=== PATIENT | male | born 1980 | race Caucasian/White ===

== ENCOUNTER 2021-02-03 10:14 | Emergency (ER) | payer SELFPAY ==
--- NOTE | ~2021-02-03 | XR_ITS ---
XR lumbar spine 2-3V 02/03/2021 10:53 Indication: Low back pain Procedure: 3 views lumbar spine Comparison: No prior studies for comparison. Findings: There are changes of posterior lumbar fusion and discectomy at L5-S1. There are laminectomy changes at L5. There is mild wedge-shaped appearance to L1 and L2, likely chronic or developmental. No acute fracture or traumatic malalignment. No spondylolisthesis. Sacral foramen are symmetric. Impression: 1: No acute abnormality of the lumbar spine. Reviewed, dictated and finalized at location [facility]. Impression: 1: No acute abnormality of the lumbar spine.
[2021-02-03 10:15] VITALS: BP 138/87; PULSE 87; RESP 16; TEMP 36.5; O2SAT 100
--- NOTE | 2021-02-03 10:19 | ED.BACK ---
HPI - Back Pain/Injury General Chief Complaint: Back Pain/Injury Stated Complaint: ambulance Time Seen by Provider: 02/03/21 10:19 Source: patient Mode of arrival: EMS Limitations: no limitations History of Present Illness HPI Narrative: 40-year-old man with a history of multiple back surgeries brought to the ER by EMS today complaining of sudden onset low back pain while walking out doors to walk his dog. It started as he was walking down some steps. he states the pain is on his left, worse with movement, and with taking a deep breath. He states the pain shot down his left leg and he has some decreased sensation in his left toes. He denies incontinence or weakness. He states he was up multiple times last night to urinate, but denies dysuria and hematuria. He denies falls or injury and has had no recent cough or cold symptoms, fever, chills, abdominal pain, chest pain, nausea, or vomiting. MD elicited complaint: back pain Pertinent past history: prior back pain, back surgery and neurological deficit ( He states his left leg used to give out on him.) Onset (ago): hour(s) (1) Timing: constant Severity: severe Similar Symptoms Previously: Yes Quality: sharp Location: lumbar spine Radiation: left leg below the knee Exacerbating factors: movement and deep breaths Relieving factors: other ( Position) Associated symptoms: numbness ( left toes) Treatments prior to arrival: acetaminophen Work related injury: No Related Data Allergies Allergy/AdvReac Type Severity Reaction Status Date / Time Penicillins Allergy Itching Verified 02/03/21 10:16 Review of Systems Review of Systems: All systems reviewed & are unremarkable except as noted in HPI and below Constitutional: Constitutional: Denies chills and Denies fever(s) Eyes: Eyes: Denies change in vision and Denies photophobia ENT: Denies dysphagia, Denies nasal congestion and Denies sore throat Cardiovascular: Cardiovascular: Denies chest pain and Denies radiating jaw, neck or arm pain Respiratory: Respiratory: Denies cough and Denies dyspnea Gastrointestinal: Gastrointestinal: Denies abdominal pain, Denies nausea and Denies vomiting Genitourinary: Genitourinary: Denies hematuria, Reports urinary frequency and Denies urinary incontinence Musculoskeletal: Musculoskeletal: Reports back pain, Denies arthralgias and Denies joint swelling Integumentary/Breasts: Skin/Breast: Denies pruritus, Denies erythema and Denies rash Neurologic: Reports as per HPI, Denies vertigo, Denies dizziness, Denies syncope, Denies focal weakness and Reports numbness Hematologic/Lymphatic: Hematologic/Lymphatic: Denies easy bleeding and Denies easy bruising Allergic/Immunologic: Allergic/Immunologic: Denies lip swelling and Denies throat swelling [facility] Surgical History Surgical History (Updated 02/03/21 @ 10:37 by Danny Diggs MD) History of lumbar fusion History of lumbar surgery Social History Social History (Updated 02/03/21 @ 10:37 by Danny Diggs MD) Smoking status: Never smoker Alcohol intake: never Substance use: never Living arrangements: with family Exam Const: General: healthy appearing and alert Orientation/consciousness: patient oriented x3 Limitations: no limitations Other: Moderate to severe acute distress. HENMT: Ears: EAC's normal Eyes: Conjunctivae: conjunctivae normal Pupils: Equal, round and reactive pupils present EOM: EOMs intact bilaterally Resp: Effort & Inspection: normal respiratory effort and not labored Auscultation: clear to auscultation bilaterally, no rales, no rhonchi and no wheezes Cardio: Rate: regular rate Rhythm: regular rhythm Heart sounds: no murmurs GI: GI Palp: Yes Soft to palpation, No Tenderness to palpation present (GI), No Guarding due to palpation present (GI), No Rigid due to palpation and No Palpable mass present Skin: General skin exam: normal color, no jaundice and no pallor Rashes: no rashes Neuro: Gene
[2021-02-03] MEDS: KETOROLAC (*BKC) 60 MG/2 ML VIAL IM (10:33)
[2021-02-03] MEDS: HYDROcodone/acetaminophen (*CRX) 5-325 MG TABLET 1 TAB PO (10:34)
[2021-02-03 12:49] LABS: Appearance Urine Clear (Clear); Bilirubin Urine Negative (Negative); Color Urine Light Yellow (Yellow); Glucose Urine UA Negative (Negative); Ketones Urine Negative (Negative); Leukocyte Esterase Ur Negative (Negative); Nitrate Urine Negative (Negative); Protein Urine Negative (Negative); Specific Grav Ur <= 1.005 (1.010-1.020); Urobilinogen Urine 0.2 mg/dL (0.2-1.0)
[2021-02-03 12:57] LABS: Add Urine Microscopic? YES; Blood Urine Trace-Lysed (Negative); RBC Urine 0-2 /hpf (0-2); Squamous Epithelial Cell Urine Rare /hpf (Few); WBC Urine 0-3 /hpf (0-3)
[2021-02-03 12:58] LABS: Bacteria Urine Trace /hpf
[2021-02-03 13:05] VITALS: RESP 14
== END 2021-02-03 13:05 | disposition home or self-care (01) ==
PROVIDERS: Emergency Provider Emergency Medicine
DX: M54.16 Radiculopathy, lumbar region (principal)
CPT/HCPCS: 72100; 81001; 96372; 99283; A9270; J1885

== ENCOUNTER 2021-11-04 16:56 | Emergency (ER) | payer MEDICARE, SELFPAY ==
[2021-11-04 17:06] VITALS: BP 109/60; PULSE 103; RESP 16; TEMP 36.6; O2SAT 100
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
[2021-11-04] MEDS: KETOROLAC (*BKC) 60 MG/2 ML VIAL IM ×2 (17:23→20:18)
[2021-11-04 17:49] VITALS: BP 105/71; PULSE 75; RESP 16; O2SAT 100
[2021-11-04] MEDS: MORPHINE SULFATE (*CRX) 4 MG/ML INJ IM (17:52)
--- NOTE | 2021-11-04 17:55 | PC.NURSE ---
report given to [facility] ems, patient being transported to [place] for ultrasound. patient medicated for pain. no other needs at this time.
--- NOTE | 2021-11-04 19:57 | PC.NURSE ---
pt returned via ems
[2021-11-04 20:02] VITALS: BP 96/67; PULSE 84; RESP 20; O2SAT 100
[2021-11-04 20:24] VITALS: BP 108/72; PULSE 86; RESP 20; TEMP 36.6; O2SAT 100
== END 2021-11-04 20:25 | disposition home or self-care (01) ==
PROVIDERS: Emergency Provider Emergency Medicine
DX: N50.812 Left testicular pain (principal)
CPT/HCPCS: 96372; 99284; J1885; J2270

== ENCOUNTER 2021-11-04 18:30 | Outpatient (CLI) | payer MEDICARE, SELFPAY ==
--- NOTE | ~2021-11-04 | US_ITS ---
US scrotum doppler DATE: 11/04/2021 19:24 INDICATION: Injury to left scrotum, left scrotal pain TECHNIQUE: Real-time imaging, color flow imaging and Doppler analysis of the scrotal contents COMPARISON: None FINDINGS: Right testicle measures 4.3 x 2.8 x 2 cm. Left testicle measures 4.4 x 2.7 x 2 cm. There is vascular flow to both testicles. No testicular laceration or rupture, torsion or mass lesion. The epididymis is unremarkable bilaterally. No hydrocele or varicocele. IMPRESSION: No significant abnormality Reviewed, dictated and finalized at [facility]. Reviewed, dictated and finalized at location [facility]. IMPRESSION: No significant abnormality
== END 2021-11-04 18:31 | disposition home or self-care (01) ==
LOC: ANHIMG 18:49
PROVIDERS: Referring Provider Emergency Medicine; Visit Provider Emergency Medicine
DX: N50.811 Right testicular pain (principal); N50.812 Left testicular pain
CPT/HCPCS: 76870; 93976

== ENCOUNTER 2022-02-12 23:20 | Emergency (ER) | payer MEDICARE, SELFPAY ==
[2022-02-12 23:25] VITALS: BP 152/98; PULSE 100; RESP 18; TEMP 36.4; O2SAT 98
--- NOTE | 2022-02-12 23:38 | ED.WOUNDLAC ---
HPI - Wound/Laceration General Chief Complaint: Wound/Laceration Stated Complaint: cut finger Time Seen by Provider: 02/12/22 23:38 Source: patient Mode of arrival: ambulatory History of Present Illness HPI narrative: 41-year-old arthritis, chronic low pain status post multiple surgeries presents to the ER with -- laceration of his left 2nd Finger. Laceration is shaped bed and on the dorsal 2nd phalanx. laceration measures 1.5 cm No other injuries noted. Last tetanus immunization was many years ago. bleeding stopped by the time he presented to the ER. Distal neurovascular bundle is intact. Onset (ago): hour(s) ( 1 hour ago) Extremity Location: Left: hand Place: home Patient tetanus UTD: No Context: accidental Associated symptoms: pain Related Data Allergies Allergy/AdvReac Type Severity Reaction Status Date / Time azithromycin [From Zithromax] Allergy Unknown Verified 02/12/22 23:32 Penicillins Allergy Itching Verified 02/03/21 10:16 Review of Systems Review of Systems: All systems reviewed & are unremarkable except as noted in HPI and below Constitutional: Constitutional: Reports as per HPI and Reports no additional constitutional complaints Eyes: Eyes: Reports as per HPI and Reports no additional eye complaints ENT: Reports system reviewed and no additional complaints, except as documented and Reports as per HPI Cardiovascular: Cardiovascular: Reports as per HPI and Reports no additional cardiovascular complaints Respiratory: Respiratory: Reports as per HPI and Reports no additional respiratory complaints Gastrointestinal: Gastrointestinal: Reports as per HPI and Reports no additional gastrointestinal complaints Genitourinary: Genitourinary: Reports no additional male genitourinary complaints and Reports as per HPI Musculoskeletal: Musculoskeletal: Reports no additional musculoskeletal complaints and Reports as per HPI Integumentary/Breasts: Skin/Breast: Reports system reviewed and no additional complaints, except as docu and Reports as per HPI Comments: Left 2nd finger laceration Neurologic: Reports system reviewed and no additional complaints, except as documented and Reports as per HPI Psychiatric: Psychiatric: Reports no additional psychiatric complaints and Reports as per HPI Endocrine: Endocrine: Reports no additional endocrine complaints and Reports as per HPI Hematologic/Lymphatic: Hematologic/Lymphatic: Reports no additional hematologic/lymphatic complaints and Reports as per HPI Allergic/Immunologic: Allergic/Immunologic: Reports no additional allergic/immunologic complaints and Reports as per HPI [facility] Past Medical History Medical History Chronic back pain Surgical History Surgical History History of lumbar fusion History of lumbar surgery Social History Social History Smoking status: Never smoker Alcohol intake: never Substance use: never Exam Const: General: no acute distress Nutritional Appearance: well nourished Orientation/consciousness: patient oriented x3 Limitations: no limitations HENMT: Head: normal to inspection Ears: external ears normal General nose exam: Normal external nose present Face and sinus: normal facial exam Mouth: Yes Normal oral and palatal mucosa present Throat: posterior oropharynx normal Eyes: Conjunctivae: conjunctivae normal Pupils: Equal, round and reactive pupils present EOM: EOMs intact bilaterally Direct Ophthalmoscopy: no photophobia Neck: Neck: normal visual inspection Chest: Chest palpation & inspection: normal inspection of the chest Resp: Effort & Inspection: normal respiratory effort Cardio: Rate: regular rate Rhythm: regular rhythm GI: GI Palp: Yes Soft to palpation Other: no tenderness/ rigidity /rebound Back/Spine/Pelvis: Back: no CVA t
[2022-02-13] MEDS: TETANUS,DIPHTHERIA,AC PERTUSSIS ADULT 0.5 ML (ADACEL) IM (00:01)
[2022-02-13 00:22] VITALS: BP 144/92; PULSE 87; RESP 20; O2SAT 98
== END 2022-02-13 00:24 | disposition home or self-care (01) ==
PROVIDERS: Emergency Provider Internal Medicine Critical Care Medicine
DX: S61.211A Laceration without foreign body of left index finger without damage to nail, initial encounter (principal); W45.8XXA Other foreign body or object entering through skin, initial encounter
CPT/HCPCS: 12001; 90471; 90715; 99283; A9270